=== PATIENT | female | born 1980 | race Caucasian/White ===

== ENCOUNTER → 2017-02-04 | Outpatient (CLI) | payer OTHER ==
--- NOTE | 2017-02-04 14:43 | MM ---
Reason for exam: screening (asymptomatic). History: Taking hormonal contraceptives for 1 month. Physical Findings: Nurse did not find any significant physical abnormalities on exam. MG Screening Mammo w CAD Bilateral CC and MLO view(s) were taken. There are scattered fibroglandular densities. Focal asymmetry in the upper outer left breast posterior third position. These results were verbally communicated with the patient and result sheet given to the patient on 02/04/17. ASSESSMENT: Incomplete: need additional imaging evaluation, BI-RAD 0 RECOMMENDATION: Special view mammogram of the left breast. If lesion persists on supplemental views, image directed ultrasound is recommended. [facility] will attempt to contact patient to return for supplemental views and ultrasound if indicated.
--- NOTE | 2017-02-04 14:46 | MM ---
Reason for exam: additional evaluation requested from abnormal screening. History: Taking hormonal contraceptives for 1 month. Physical Findings: Breast exam preformed at baseline screening. MG Work Up Mamm w CAD LT Spot compression CC, spot compression MLO, and ML view(s) were taken of the left breast. The breast tissue is heterogeneously dense. This may lower the sensitivity of mammography. There is no discrete abnormality including area of concern. These results were verbally communicated with the patient and result sheet given to the patient on 02/04/17. ASSESSMENT: Negative, BI-RAD 1 RECOMMENDATION: Routine screening mammogram of the left breast at age 40.
== END | disposition home or self-care (01) ==
LOC: RADMAMWWP 13:46
PROVIDERS: ATTEND Obstetrics & Gynecology
DX: Z12.31 Encounter for screening mammogram for malignant neoplasm of breast (principal); R92.2 Inconclusive mammogram; R92.8 Other abnormal and inconclusive findings on diagnostic imaging of breast
CPT/HCPCS: G0202; G0206

== ENCOUNTER → 2018-11-05 | Outpatient (CLI) | payer OTHER ==
--- NOTE | 2018-11-05 17:13 | XR ---
EXAMINATION TYPE: XR nasal bone DATE OF EXAM: 11/05/2018 COMPARISON: None HISTORY: Nose injury TECHNIQUE: Nasal bones are examined in 4 projections. FINDINGS: There is a left nares piercing. Additional piercings are at the years. The nasal bone is intact. Maxillary spine is intact. Septum is midline. Paranasal sinuses are clear. Orbits appear unremarkable. IMPRESSION: 1. No acute nasal bone injury.
== END | disposition home or self-care (01) ==
LOC: RADXRYALE 14:31
PROVIDERS: ATTEND Internal Medicine
DX: S09.92XA Unspecified injury of nose, initial encounter (principal)
CPT/HCPCS: 70160

== ENCOUNTER 2019-02-11 09:22 | Emergency (ER) | payer OTHER ==
[2019-02-11 09:27] VITALS: TEMP 97.9
[2019-02-11] MEDS ORDERED: SODIUM CHLORIDE 0.9% 1,000 ML IV STA (09:36)
--- NOTE | 2019-02-11 09:42 | ED ---
Arrhythmia/Palpitations HPI - General Chief Complaint: Arrhythmia/Palpitations Stated Complaint: racing heart Source: patient Mode of arrival: ambulatory Limitations: no limitations - History of Present Illness Initial Comments: 38-year-old female presenting today for chief complaint of sensation of heart racing. Patient states that on Saturday and yesterday she notes her heart was racing she states it comes and goes she states it woke her up on Saturday morning. Patient states she went to her primary care physician's office Dr. Mccann for EKG was obtained she denies any abnormalities. Patient states this morning she felt her heart rate was all over the place. She states there is history of early menopause she is not sure if this is cause dysfunction in her thyroid. Patient states she does have life stressors. And anxiety at times. Pt states he feels like there is a mild tightness of chest with a deep breath but only occasionally and not in the abscess of breathing, denies it being pain. She denies any heavy alcohol ingestion or drug use. Patient denies known history of diabetes hypertension cancer she's never had an myocardial infarction or stroke. Patient denies mother or father having history of coronary artery disease. She states that she believes her grandfather did. She denies premature CAD in family history. Pt denies upper extremity paresthesias jaw pain, back pain, leg swelling, recent surgery, recent travel, hormone use, hemoptysis, history of DVT personally or within her family, pt denies abdominal, nausea, vomiting, diaphoresis. Upon arrival pt appears well there are no signs of acute distress. Pt HR 95 upon arrival, regular to palpation. - Related Data Home Medications Medication Instructions Recorded Confirmed Levonorgestrel-Ethin Estradiol 1 tab PO DAILY 02/11/19 02/11/19 [Levora-28 Tablet] Allergies Allergy/AdvReac Type Severity Reaction Status Date / Time No Known Allergies Allergy Verified 02/11/19 09:38 Review of Systems ROS Statement: Those systems with pertinent positive or pertinent negative responses have been documented in the HPI. ROS Other: All systems not noted in ROS Statement are negative. Past Medical History Past Medical History: No Reported History History of Any Multi-Drug Resistant Organisms: None Reported Past Surgical History: No Surgical Hx Reported Past Psychological History: No Psychological Hx Reported Smoking Status: Former smoker Past Alcohol Use History: Occasional Past Drug Use History: None Reported General Exam - General Exam Comments Initial Comments: General: The patient is awake and alert, in no distress, and does not appear acutely ill. Eye: +3 mm pupils are equal, round and reactive to light, extra-ocular movements are intact. No nystagmus. There is normal conjunctiva bilaterally. No signs of icterus. Ears, nose, mouth and throat: There are moist mucous membranes and no oral lesions. Neck: The neck is supple, there is no tenderness or JVD. Cardiovascular: There is a regular rate and rhythm. Faint mumur. No rub or gallop is appreciated. Respiratory: Lungs are clear to auscultation, respirations are non-labored, breath sounds are equal. No wheezes, stridor, rales, or rhonchi. Gastrointestinal: Soft, non-distended, non-tender abdomen without masses or organomegaly noted. There is no rebound or guarding present.Bowel sounds are unremarkable. Musculoskeletal: Normal ROM, no tenderness. Strength 5/5. Sensation intact. Radial pulses equal bilaterally 2+. Neurological: A&O x 3. CN II-XII intact, There are no obvious motor or sensory deficits. Coordination appears grossly intact. Speech is normal. Skin: Skin is warm and dry and no rashes or lesions are noted. No LE edema,there is no pain to palpation of the calves b/l, (-) Homans. Psychiatric: Cooperative, appropriate mood & affect, normal judgment. 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 There are normal QRS complexes and normal R- wave progression. ST segments have no elevation or depression, and ME segments appear normal. ER interval 160 ms, QRS duration 78 ms, QT/QTC 354/413 ms. QT was interpreted by myself as well as attending provider Dr. Velasquez Medical Decision Making - Medical Decision Making 38-year-old female presenting today for chief complaint of heart palpitations. Patient states she has for the past 2 days felt her heart racing for a few moments and time. Patient states she does have occasional chest tightness with a deep breath she states this is not consistent and denies this currently. Patient denies any chest pain. Patient had EKG outpatient which revealed no acute other maladies. She states her primary care provider is referring her to cardiology. EKG today revealed no acute after maladies no findings consistent with acute coronary syndrome. Troponin negative. Although had low suspicion given patient's complaint. She has no history of diabetes hyperlipidemia or hypertension. Patient denies any premature coronary artery disease within the family. Patient did not have any episodes of palpitations while in the emergency department. Patient did have a very slight murmur audible on examination. There is no lower extremity swelling pleural effusions on chest x- ray or findings consistent with heart failure. At this time I feel patient is stable for discharge with outpatient cardiology evaluation, and primary care follow-up. Patient is agreeable care plan as well as discharge today. She states she feels comfortable and is asymptomatic. I discussed the case with attending provider Dr. Velasquez who is agreeable care plan discharge today - Lab Data Result diagrams: 02/11/19 09:55 02/11/19 09:55 Lab Results 02/11/19 02/11/19 02/11/19 Range/Units 09:55 09:55 09:55 WBC 9.5 (3.8-10.6) k/uL RBC 4.86 (3.80-5.40) m/uL Hgb 13.1 (11.4-16.0) gm/dL Hct 41.1 (34.0-46.0) % MCV 84.4 (80.0-100.0) fL MCH 26.9 (25.0-35.0) pg MCHC 31.9 (31.0-37.0) g/dL RDW 13.4 (11.5-15.5) % Plt Count 325 (150-450) k/uL Neutrophils % 77 % Lymphocytes % 17 % Monocytes % 4 % Eosinophils % 1 % Basophils % 0 % Neutrophils # 7.3 (1.3-7.7) k/uL Lymphocytes # 1.6 (1.0-4.8) k/uL Monocytes # 0.4 (0-1.0) k/uL Eosinophils # 0.1 (0-0.7) k/uL Basophils # 0.0 (0-0.2) k/uL PT 9.7 (9.0-12.0) sec INR 0.9 (<1.2) APTT 22.2 (22.0-30.0) sec D-Dimer 0.44 (<0.60) mg/L FEU Sodium 139 (137-145) mmol/L Potassium 4.5 (3.5-5.1) mmol/L Chloride 107 (98-107) mmol/L Carbon Dioxide 26 (22-30) mmol/L Anion Gap 6 mmol/L BUN 10 (7-17) mg/dL Creatinine 0.65 (0.52-1.04) mg/dL Est GFR (CKD-EPI)AfAm >90 (>60 ml/min/1.73 sqM) Est GFR (CKD-EPI)NonAf >90 (>60 ml/min/1.73 sqM) Glucose 114 H (74-99) mg/dL Calcium 9.1 (8.4-10.2) mg/dL Magnesium 1.9 (1.6-2.3) mg/dL Total Bilirubin 0.5 (0.2-1.3) mg/dL AST 22 (14-36) U/L ALT 19 (9-52) U/L Alkaline Phosphatase 49 (38-126) U/L Troponin I (0.000-0.034) ng/mL Total Protein 6.9 (6.3-8.2) g/dL Albumin 4.1 (3.5-5.0) g/dL TSH 0.718 (0.465-4.680) mIU/L Urine Color Urine Appearance (Clear) Urine pH (5.0-8.0) Ur Specific [place] (1.001-1.035) Urine Protein (Negative) Urine Glucose (UA) (Negative) Urine Ketones (Negative) Urine Blood (Negative) Urine Nitrite (Negative) Urine Bilirubin (Negative) Urine Urobilinogen (<2.0) mg/dL Ur Leukocyte Esterase (Negative) Urine HCG, Qual (Not Detectd) Urine Opiates Screen (NotDetected) Ur Oxycodone Screen (NotDetected) Urine Methadone Screen (NotDetected) Ur Propoxyphene Screen (NotDetected) Ur Barbiturates Screen (NotDetected) U Tricyclic Antidepress (NotDetected) Ur Phencyclidine Scrn (NotDetected) Ur Amphetamines Screen (NotDetected) U Methamphetamines Scrn (NotDetected) U Benzodiazepines Scrn (NotDetected) Urine Cocaine Screen (NotDetected) U Marijuana (THC) Screen (NotDetected) 02/11/19 02/11/19 02/11/19 Range/Units 09:55 09:55 09:55 WBC (3.8-10.6) k/uL RBC (3.80-5.40) m/uL Hgb (11.4-16.0) gm/dL Hct (34.0-46.0) % MCV (80.0-100.0) fL MCH (25.0-35.0) pg MCHC (31.0-37.0) g/dL RDW (11.5-15.5) % Plt Count (150-450) k/uL Neutrophils % % Lymphocytes % % Monocytes % % Eosinophils % % Basophils % % Neutrophils # (1.3-7.7) k/uL Lymphocytes # (1.0-4.8) k/uL Monocytes # (0-1.0) k/uL Eosinophils # (0-0.7) k/uL Basophils # (0-0.2) k/uL PT (9.0-12.0) sec INR (<1.2) APTT (22.0-30.0) sec D-Dimer (<0.60) mg/L FEU Sodium (137-145) mmol/L Potassium (3.5-5.1) mmol/L Chloride (98-107) mmol/L Carbon Dioxide (22-30) mmol/L Anion Gap mmol/L BUN (7-17) mg/dL Creatinine (0.52-1.04) mg/dL Est GFR (CKD-EPI)AfAm (>60 ml/min/1.73 sqM) Est GFR (CKD-EPI)NonAf (>60 ml/min/1.73 sqM) Glucose (74-99) mg/dL Calcium (8.4-10.2) mg/dL Magnesium (1.6-2.3) mg/dL Total Bilirubin (0.2-1.3) mg/dL AST (14-36) U/L ALT (9-52) U/L Alkaline Phosphatase (38-126) U/L Troponin I <0.012 (0.000-0.034) ng/mL Total Protein (6.3-8.2) g/dL Albumin (3.5-5.0) g/dL TSH (0.465-4.680) mIU/L Urine Color Yellow Urine Appearance Clear (Clear) Urine pH 6.0 (5.0-8.0) Ur Specific [place] 1.013 (1.001-1.035) Urine Protein Negative (Negative) Urine Glucose (UA) Negative (Negative) Urine Ketones Negative (Negative) Urine Blood Negative (Negative) Urine Nitrite Negative (Negative) Urine Bilirubin Negative (Negative) Urine Urobilinogen <2.0 (<2.0) mg/dL Ur Leukocyte Esterase Negative (Negative) Urine HCG, Qual Not Detected (Not Detectd) Urine Opiates Screen Not Detected (NotDetected) Ur Oxycodone Screen Not Detected (NotDetected) Urine Methadone Screen Not Detected (NotDetected) Ur Propoxyphene Screen Not Detected (NotDetected) Ur Barbiturates Screen Not Detected (NotDetected) U Tricyclic Antidepress Not Detected (NotDetected) Ur Phencyclidine Scrn Not Detected (NotDetected) Ur Amphetamines Screen Not Detected (NotDetected) U Methamphetamines Scrn Not Detected (NotDetected) U Benzodiazepines Scrn Not Detected (NotDetected) Urine Cocaine Screen Not Detected (NotDetected) U Marijuana (THC) Screen Not Detected (NotDetected) Disposition Clinical Impression: Heart palpitations Disposition: HOME SELF-CARE Condition: Good Instructions (If sedation given, give patient instructions): Heart Palpitations (ED) Additional Instructions: Please use medication as discussed. Please follow-up with family doctor in the next 2 days, and cardiology as scheduled. Please return to emergency room if the symptoms increase or worsen or for any other concerns. Is patient prescribed a controlled substance at d/c from ED?: No Referrals: Ayanna Mccann MD [Primary Care Provider] - 1-2 days Rohan Gallego MD [STAFF PHYSICIAN] - 1-2 days Time of Disposition: 11:23
[2019-02-11 09:57] VITALS: BP 110/67; PULSE 91; RESP 18
[2019-02-11 10:13] LABS: Appearance,Urine Clear (Clear); Bilirubin,Urine Negative (Negative); Blood,Urine Negative (Negative); Color,Urine Yellow; Glucose,Urine (UA) Negative (Negative); Ketones,Urine Negative (Negative); Leukocyte Esterase,Urine Negative (Negative); Nitrite,Urine Negative (Negative); Protein,Urine Negative (Negative); Specific Gravity,Urine 1.013 (1.001-1.035); Urobilinogen,Urine <2.0 mg/dL (<2.0)
--- NOTE | 2019-02-11 10:15 | XR ---
EXAMINATION TYPE: XR chest 2V DATE OF EXAM: 02/11/2019 COMPARISON: NONE HISTORY: Elevated heart rate and palpitations. Dysrhythmia. TECHNIQUE: Frontal and lateral views of the chest are obtained. FINDINGS: Overlying EKG leads are present. There is no focal air space opacity, pleural effusion, or pneumothorax seen. The cardiac silhouette size is within normal limits. The osseous structures are intact. IMPRESSION: No acute cardiopulmonary process.
[2019-02-11 10:18] LABS: Basophils % (A) 0 %; Eosinophils # (A) 0.1 k/uL (0-0.7); Eosinophils % (A) 1 %; HCT 41.1 % (34.0-46.0); HGB 13.1 gm/dL (11.4-16.0); Lymphocytes # (A) 1.6 k/uL (1.0-4.8); Lymphocytes % (A) 17 %; MCH 26.9 pg (25.0-35.0); MCHC 31.9 g/dL (31.0-37.0); MCV 84.4 fL (80.0-100.0); Mean Platelet Volume 6.7; Monocytes # (A) 0.4 k/uL (0-1.0); Monocytes % (A) 4 %; Neutrophils # (A) 7.3 k/uL (1.3-7.7); Neutrophils % (A) 77 %; Platelet Count 325 k/uL (150-450); RBC 4.86 m/uL (3.80-5.40); RDW 13.4 % (11.5-15.5); WBC 9.5 k/uL (3.8-10.6)
[2019-02-11 10:28] LABS: Amphetamine Screen,Urine Not Detected (NotDetected); Barbiturate Screen,Urine Not Detected (NotDetected); Benzodiazepines Screen,Urine Not Detected (NotDetected); Cocaine Screen,Urine Not Detected (NotDetected); Methadone Screen, Urine Not Detected (NotDetected); Opiate Screen,Urine Not Detected (NotDetected); Oxycodone Screen, Urine Not Detected (NotDetected); Phencyclidine Screen,Urine Not Detected (NotDetected); Tricyclic Antidepressant,Urine Not Detected (NotDetected); Urn Cannabinoid Scrn Not Detected (NotDetected)
[2019-02-11 10:34] LABS: ALT 19 U/L (9-52); AST 22 U/L (14-36); Albumin 4.1 g/dL (3.5-5.0); Alkaline Phosphatase 49 U/L (38-126); Anion Gap 6 mmol/L; Blood Urea Nitrogen 10 mg/dL (7-17); Calcium 9.1 mg/dL (8.4-10.2); Carbon Dioxide 26 mmol/L (22-30); Chloride 107 mmol/L (98-107); Glucose 114 mg/dL (74-99); Magnesium 1.9 mg/dL (1.6-2.3); Potassium 4.5 mmol/L (3.5-5.1); Sodium 139 mmol/L (137-145); Total Bilirubin 0.5 mg/dL (0.2-1.3); Total Protein 6.9 g/dL (6.3-8.2)
[2019-02-11 10:51] LABS: D-Dimer 0.44 mg/L FEU (<0.60); INR 0.9 (<1.2); Partial Thromboplastin Time 22.2 sec (22.0-30.0); Prothrombin Time 9.7 sec (9.0-12.0)
== END 2019-02-11 11:55 | disposition home or self-care (01) ==
LOC: EC 09:22
DX: R00.2 Palpitations (principal); R07.89 Other chest pain; R01.1 Cardiac murmur, unspecified; Z87.891 Personal history of nicotine dependence; Z79.3 Long term (current) use of hormonal contraceptives
CPT/HCPCS: 36415; 71046; 80053; 80306; 81003; 81025; 83735; 84443; 84484; 85025; 85379; 85610; 85730; 93005; 96360; 99285

== ENCOUNTER 2019-02-12 22:45 | Observation (INO) | payer OTHER ==
[2019-02-12] MEDS ORDERED: NALOXONE 0.4 MG/ML 1 ML VIAL IV PRN (23:21)
--- NOTE | 2019-02-12 23:21 | ED ---
General Adult HPI - General Chief complaint: Arrhythmia/Palpitations Stated complaint: Palpitations Time Seen by Provider: 02/12/19 22:56 Source: patient Mode of arrival: ambulatory Limitations: no limitations - History of Present Illness Initial comments: Dictation was produced using [employer] dictation software. please excuse any gramma tical, word or spelling errors. Chief Complaint: 38-year-old female presents with palpitations. History of Present Illness: Patient is a 30-year-old female presents with palpitations. Patient states she does not have any medical problems. She was seen here yesterday and was evaluated. She had laboratory evaluation performed. All results are within acceptable limits. She did not have any electrolyte abnormality. No elevation in TSH. Urine toxicology screen was negative. Patient was discharged. When she is at home she experience an episode where her heart rate went up into the 130s 140s. Patient states she was also a little lightheaded. She tried to schedule appointment with cardiology however was not able to get an appointment for another 2-3 weeks. She stated she department seeking further care. Patient is asymptomatic at this time. The ROS documented in this emergency department record has been reviewed and confirmed by me. Those systems with pertinent positive or negative responses have been documented in the HPI. All other systems are other negative and/or noncontributory. PHYSICAL EXAM: General Impression: Alert and oriented x3, not in acute distress HEENT: Normocephalic atraumatic, extra-ocular movements intact, pupils equal and reactive to light bilaterally, mucous membranes moist. Cardiovascular: Heart regular rate and rhythm, S1&S2 audible, no murmurs, rubs or gallops Chest: Lungs clear to auscultation bilaterally, no rhonchi, no wheeze, no rales Abdomen: Bowel sounds present, abdomen soft, non-tender, non-distended, no organomegaly Musculoskeletal: Pulses present and equal in all extremities, no peripheral edema Motor: no focal deficits noted Neurological: CN II-XII grossly intact, no focal motor or sensory deficits noted Skin: Intact with no visualized rashes Psych: Normal affect and mood ED course: 38 female presents with chief complaint palpitations. She is failed outpatient treatment. Signs upon arrival shows heart rate of 11, respiratory signs within acceptable limits. Physical examination is benign. Chart and labs were reviewed from yesterday's visit found to be within acceptable limits. We will plan to place patient in observation unit with cardiology consultation and echocardiogram. Patient is understandable and agreeable to disposition. At this point there is no clear source of patient's symptoms. EKG interpretation: Ventricular rate 91, normal sinus rhythm,. Interval and 60, Q 74, QTC 413. No FL prolongation, no QTC prolongation, no ST or T-wave changes noted. Overall, this EKG is unremarkable - Related Data Home Medications Medication Instructions Recorded Confirmed Levonorgestrel-Ethin Estradiol 1 tab PO DAILY 02/11/19 02/12/19 [Levora-28 Tablet] Aspirin 81 mg PO ONCE PRN 02/12/19 02/12/19 Allergies Allergy/AdvReac Type Severity Reaction Status Date / Time No Known Allergies Allergy Verified 02/12/19 22:56 Review of Systems ROS Statement: Those systems with pertinent positive or pertinent negative responses have been documented in the HPI. ROS Other: All systems not noted in ROS Statement are negative. Past Medical History Past Medical History: No Reported History History of Any Multi-Drug Resistant Organisms: None Reported Past Surgical History: No Surgical Hx Reported Past Psychological History: No Psychological Hx Reported Smoking Status: Former smoker Past Alcohol Use History: Occasional Past Drug Use History: None Reported General Exam Limitations: no limitations Course Vital Signs 02/12/19 22:47 Temperature 98.2 F Pulse Rate 101 H Respiratory 20 Rate Blood Pressure 152/92 O2 Sat by Pulse 98 Oximetry Disposition Clinical Impression: Palpitations Disposition: ADMITTED IP TO THIS HOSP Condition: Fair Referrals: Ayanna Mccann MD [Primary Care Provider] - 1-2 days Decision Time: 23:21
[2019-02-12] MEDS ORDERED: SODIUM CHLORIDE 0.9% 1,000 ML IV SCH (23:30)
[2019-02-12 23:41] LABS: Basophils # (A) 0.1 k/uL (0-0.2); Basophils % (A) 0 %; Eosinophils # (A) 0.2 k/uL (0-0.7); Eosinophils % (A) 2 %; HCT 39.8 % (34.0-46.0); HGB 13.1 gm/dL (11.4-16.0); Lymphocytes # (A) 2.9 k/uL (1.0-4.8); Lymphocytes % (A) 23 %; MCH 27.3 pg (25.0-35.0); MCV 82.8 fL (80.0-100.0); Mean Platelet Volume 6.9; Monocytes # (A) 0.7 k/uL (0-1.0); Monocytes % (A) 5 %; Neutrophils # (A) 8.7 k/uL (1.3-7.7); Neutrophils % (A) 69 %; Platelet Count 317 k/uL (150-450); RBC 4.81 m/uL (3.80-5.40); RDW 13.8 % (11.5-15.5); WBC 12.7 k/uL (3.8-10.6)
[2019-02-12 23:44] LABS: Anion Gap 11 mmol/L; Blood Urea Nitrogen 13 mg/dL (7-17); Calcium 9.5 mg/dL (8.4-10.2); Carbon Dioxide 23 mmol/L (22-30); Chloride 103 mmol/L (98-107); Glucose 97 mg/dL (74-99); Magnesium 1.9 mg/dL (1.6-2.3); Potassium 3.9 mmol/L (3.5-5.1); Sodium 137 mmol/L (137-145)
[2019-02-13 01:01] LABS: Appearance,Urine Clear (Clear); Bilirubin,Urine Negative (Negative); Blood,Urine Negative (Negative); Color,Urine Light Yellow; Glucose,Urine (UA) Negative (Negative); Ketones,Urine 1+ (Negative); Leukocyte Esterase,Urine Negative (Negative); Nitrite,Urine Negative (Negative); Protein,Urine Negative (Negative); Specific Gravity,Urine 1.008 (1.001-1.035); Urobilinogen,Urine <2.0 mg/dL (<2.0)
[2019-02-13] MEDS ORDERED: METOPROLOL SUCCINATE (ER) 25 MG TAB.ER.24H PO SCH (11:15)
[2019-02-13] MEDS ORDERED: SODIUM CHLORIDE 0.9% 1,000 ML IV SCH (12:15)
--- NOTE | 2019-02-13 12:16 | P.CRDCN ---
History of Present Illness History of present illness: This is a pleasant 38-year-old female with no significant past medical history. She denies history of hypertension, dyslipidemia, diabetes mellitus or coronary artery disease. She presented to the hospital with symptoms of palpitations. She states she first felt this on Saturday when she woke up. She was laying in bed when she felt her heart racing extremely fast. She was very upset that at the time and around her heart rate was 138. This lasted for approximately 10-15 minutes and ultimately subsided on its own. She saw her primary care physician and was recommended to follow-up with a headmaster/mistress. She called the office made appointment for 2 weeks. However again yesterday she felt symptoms of palpitations and again her that there are heart rate was approximately 130. She decided to present to the emergency department. At that time her electrolytes were normal, EKG and telemetry were unremarkable and thyroid was normal. She was sent home. This happen again last evening and this time was associated with some mild lightheadedness and some pleuritic chest discomfort. She states she felt like it hurt worse when she took in a deep breath at times. D-dimer obtained on first admission February 11 was unremarkable. EKG reveals sinus mechanism with no acute ST or T wave abnormalities noted. Telemetry tracings have been unremarkable for an acute arrhythmia. Laboratory data reviewed, WBC 12.7, hemoglobin 13.1, platelets 317, d-dimer 0.45, sodium 137, potassium 3.9, creatinine 0.85, magnesium 1.9. TSH obtained on the was 0.7. She takes no daily cardiac medications. At the time of my exam: CONSTITUTIONAL: Denies fever. Denies chills. EYES: Denies blurred vision. Denies vision changes. Denies eye pain. EARS, NOSE, MOUTH & THROAT: Denies headache. Denies sore throat. Denies ear pain. CARDIOVASCULAR: Complains of pleuritic chest pain. Denies shortness of breath. Denies orthopnea. Denies PND. Denies palpitations. RESPIRATORY: Denies cough. GASTROINTESTINAL: Denies abdominal pain. Complains of diarrhea. Denies constipation. Denies nausea. Denies vomiting. MUSCULOSKELETAL: Denies myalgias. INTEGUMENTARY: Denies pruitis. Denies rash. NEUROLOGIC: Denies numbness. Denies tingling. Denies weakness. PSYCHIATRIC: Denies anxiety. Denies depression. ENDOCRINE: Denies fatigue. Denies weight change. Denies polydipsia. Denies polyurina. GENITOURINARY: Denies burning, hematuria or urgency with micturation. HEMATOLOGIC: Denies history of anemia. Denies bleeding. Blood pressure 147/79 heart rate 90 afebrile maintaining oxygen saturation on room air GENERAL: This is a 38-year-old female in no apparent distress at the time of my examination. HEENT: Head is atraumatic, normocephalic. Pupils are equal, round. Sclerae anicteric. Conjunctivae are clear. Mucous membranes of the mouth are moist. Neck is supple. There is no jugular venous distention. No carotid bruit is heard. LUNGS: Clear to auscultation no wheezes, rales or rhonchi. No chest wall tenderness is noted on palpation or with deep breathing. HEART: Regular rate and rhythm without murmurs, rubs or gallops. S1 and S2 heard. ABDOMEN: Soft, nontender. Bowel sounds are heard. No organomegaly noted. EXTREMITIES: No evidence of peripheral edema and no calf tenderness noted. VASCULAR: Radial and dorsalis pedis pulses palpated, no evidence of clubbing. NEUROLOGIC: Patient is awake, alert and oriented x3. ASSESSMENT Palpitations Pleuritic chest pain Leukocytosis PLAN Palpitations have resolved prior to admission. She has had no further symptoms of palpitations and telemetry tracings have been unremarkable. Echocardiogram has been obtained and reviewed. Perform stress echocardiogram to assess for an acute arrhythmia. Apply 30 day event monitor for outpatient monitoring of possible arrhythmia. Check for orthostatic changes. Recommend IV fluid hydration 0.9% normal saline at 100 mL/h. Follow up with Dr. Sterling upon discharge. Thank you kindly for this consultation. Nurse Practitioner note has been reviewed, I agree with a documented findings and plan of care. Patient was seen and examined. Past Medical History Past Medical History: No Reported History History of Any Multi-Drug Resistant Organisms: None Reported Past Surgical History: No Surgical Hx Reported Past Anesthesia/Blood Transfusion Reactions: No Reported Reaction Past Psychological History: No Psychological Hx Reported Smoking Status: Former smoker Past Alcohol Use History: Occasional Past Drug Use History: None Reported - Past Family History Father Family Medical History: Hypertension Sister(s) Additional Family Medical History / Comment(s): borderline DM Medications and Allergies Home Medications Medication Instructions Recorded Confirmed Type Levonorgestrel-Ethin Estradiol 1 tab PO DAILY 02/11/19 02/12/19 History [Levora-28 Tablet] Aspirin 81 mg PO ONCE PRN 02/12/19 02/12/19 History Allergies Allergy/AdvReac Type Severity Reaction Status Date / Time No Known Allergies Allergy Verified 02/12/19 22:56 Physical Exam Vitals: Vital Signs Temp Pulse Pulse Pulse Resp BP BP 02/13/19 08:00 18 02/13/19 07:25 97.4 F L 90 18 147/79 02/13/19 04:00 97.9 F 102 H 18 02/13/19 03:33 18 02/13/19 00:00 98.2 F 94 77 18 146/95 02/12/19 23:25 90 02/12/19 22:47 98.2 F 101 H 20 152/92 BP Pulse Ox 02/13/19 08:00 02/13/19 07:25 97 02/13/19 04:00 134/82 98 02/13/19 03:33 02/13/19 00:00 117/76 96 02/12/19 23:25 02/12/19 22:47 98 Intake and Output 02/12/19 02/13/19 02/13/19 22:59 06:59 14:59 Other: Voiding Method Toilet Toilet # Voids 1 Weight 87.543 kg Results 02/12/19 23:15 02/12/19 23:15 CBC 02/12/19 Range/Units 23:15 WBC 12.7 H (3.8-10.6) k/uL RBC 4.81 (3.80-5.40) m/uL Hgb 13.1 (11.4-16.0) gm/dL Hct 39.8 (34.0-46.0) % Plt Count 317 (150-450) k/uL Comprehensive Metabolic Panel 02/12/19 Range/Units 23:15 Sodium 137 (137-145) mmol/L Potassium 3.9 (3.5-5.1) mmol/L Chloride 103 (98-107) mmol/L Carbon Dioxide 23 (22-30) mmol/L BUN 13 (7-17) mg/dL Creatinine 0.85 (0.52-1.04) mg/dL Glucose 97 (74-99) mg/dL Calcium 9.5 (8.4-10.2) mg/dL Current Medications Generic Name Dose Route Start Last Admin Trade Name Freq PRN Reason Stop Dose Admin Sodium Chloride 1,000 mls @ 100 mls/hr 02/13/19 12:15 Saline 0.9% IV .Q10H CATALINO Metoprolol Succinate 25 mg 02/13/19 11:15 02/13/19 11:59 Toprol Xl PO 25 mg DAILY CATALINO Administration Naloxone HCl 0.2 mg 02/12/19 23:21 Narcan IV Q2M PRN Opioid Reversal Intake and Output 02/12/19 02/13/19 02/13/19 22:59 06:59 14:59 Other: Voiding Method Toilet Toilet # Voids 1 Weight 87.543 kg 02/12/19 23:15 02/12/19 23:15
--- NOTE | 2019-02-13 12:48 | ECHOS ---
STRESS ECHOCARDIOGRAM DATE OF SERVICE: 02/13/2019 INDICATIONS: Chest pain. MEDICATIONS: Estradiol, aspirin. BASELINE HEART RATE: 96 BASELINE BLOOD PRESSURE: 147/70 MAXIMUM HEART RATE: 165 MAXIMUM BLOOD PRESSURE: 163/79 85% MPHR: 155 100% MPHR: 182 METS: 9.7 MAXIMUM STAGE REACHED: III TOTAL EXERCISE TIME: 8 minutes CLINICAL INFORMATION: Patient was exercised for a total period of 8 minutes, peak heart rate of 165 was achieved. Maximum blood pressure 163/79 mmHg was noted. The resting EKG shows normal sinus rhythm with normal UT interval and QRS duration and normal ST-T waves. No ST- segment depression suggestive of ischemia was noted. No dysrhythmias were noted. The baseline echocardiographic images reveals normal left ventricular chamber size with normal left ventricular systolic function. In the immediate postexercise period, normal increase in the wall thickness and contractility is noted. FINAL IMPRESSION: This stress echocardiographic study is negative for stress-induced ischemia. EKG portion of the stress test is not suggestive of ischemia. Patient's exercise tolerance is average. MMODL / IJN: [id number] /
[2019-02-13 13:00] LABS: T4, Free (Free Thyroxine) 1.25 ng/dL (0.78-2.19)
--- NOTE | 2019-02-13 14:13 | P.PN ---
Progress Note - Text Continue IV fluid hydration until 1700 then she is stable for discharge home. Follow up appointment with Dr. Sterling has been made in the office.
--- NOTE | 2019-02-13 15:42 | ECHOF ---
Referral Reason:SYNCOPE MEASUREMENTS -------- HEIGHT: 165.1 cm WEIGHT: 87.5 kg BP: 134/82 RVIDd: 2.8 cm (< 3.3) IVSd: 1.2 cm (0.6 - 1.1) LVIDd: 3.4 cm (3.9 - 5.3) LVPWd: 1.2 cm (0.6 - 1.1) IVSs: 1.4 cm LVIDs: 2.3 cm LVPWs: 1.7 cm LA Diam: 2.9 cm (2.7 - 3.8) LAESV Index (A-L): 26.56 ml/m Ao Diam: 2.7 cm (2.0 - 3.7) AV Cusp: 2.0 cm (1.5 - 2.6) MV EXCURSION: 18.612 mm (> 18.000) MV EF SLOPE: 89 mm/s (70 - 150) EPSS: 0.3 cm MV E Rian: 1.03 m/s MV DecT: 210 ms MV A Rian: 0.98 m/s MV E/A Ratio: 1.05 RAP: 5.00 mmHg RVSP: 15.73 mmHg FINDINGS -------- Sinus rhythm. This was a technically good study. The left ventricular size is normal. There is borderline concentric left ventricular hypertrophy. Overall left ventricular systolic function is normal with, an EF between 60 - 65 %. The right ventricle is normal in size. Normal LA size by volume 22+/-6 ml/m2. The right atrium is normal in size. Aneurysmal Interatrial septum. The aortic valve is trileaflet and appears structurally normal. The mitral valve is normal. The tricuspid valve appears structurally normal. Trace tricuspid regurgitation present. Right fracisco tricular systolic pressure is normal at < 35 mmHg. Trace/mild (physiologic) pulmonic regurgitation. The aortic root size is normal. Normal inferior vena cava with normal inspiratory collapse consistent with estimated right atrial pre ssure of 5 mmHg. There is no pericardial effusion. CONCLUSIONS -------- 1. Sinus rhythm. 2. This was a technically good study. 3. The left ventricular size is normal. 4. There is borderline concentric left ventricular hypertrophy. 5. Overall left ventricular systolic function is normal with, an EF between 60 - 65 %. 6. The right ventricle is normal in size. 7. Normal LA size by volume 22+/-6 ml/m2. 8. The right atrium is normal in size. 9. Aneurysmal Interatrial septum. 10. The aortic valve is trileaflet and appears structurally normal. 11. The mitral valve is normal. 12. The tricuspid valve appears structurally normal. 13. Trace tricuspid regurgitation present. 14. Right ventricular systolic pressure is normal at < 35 mmHg. 15. Trace/mild (physiologic) pulmonic regurgitation. 16. The aortic root size is normal. 17. Normal inferior vena cava with normal inspiratory collapse consistent with estimated right atrial pressure of 5 mmHg. 18. There is no pericardial effusion. EXTRACTIONS TECHNICIAN: Vibha Bishop RDCS
--- NOTE | 2019-02-13 15:57 | P.HPIM ---
History of Present Illness Patient is a very pleasant 32-year-old female came in with complains of palpitations. Patient heart rate was very high at 138 when she checked it at home. Lasted for approximately 10-15 minutes. PCP advised to follow with a lead material handler and she can you to have symptoms of palpitations because of which she came to ER in the ER EKG showed heart rate of 21 but heart rate is in the sinus tachycardia in low 100s. Patient was comparing of some pleuritic chest pain because of which are CAT scan of the chest was opted ruled out pulmonary embolism no there is no pneumonia patient 2 days, also complaining of tingling and numbness under the eyebrow area not diffuse appears to be localized. This is not consistent with any area of the pain. Patient denied any fever chills patient has some flushing. We will leukocytosis without any acute evidence of infection or palpitations associated mild lightheadedness patient underwent a dobutamine stress test which was negative although he appears to have some sinus tachycardia with that. Patient is being discharged on metoprolol along with an event monitor. Patient denied any syncopal episode. TSH and T4 within normal limits Review of Systems REVIEW OF SYSTEMS: CONSTITUTIONAL: No fever, no malaise, no fatigue. HEENT: No recent visual problems or hearing problems. Denied any sore throat. CARDIOVASCULAR: No chest pain, orthopnea, PND, no syncope. PULMONARY: No shortness of breath, no cough, no hemoptysis. GASTROINTESTINAL: No diarrhea, no nausea, no vomiting, no abdominal pain. NEUROLOGICAL: No headaches, no weakness, no numbness. HEMATOLOGICAL: Denies any bleeding or petechiae. GENITOURINARY: Denies any burning micturition, frequency, or urgency. MUSCULOSKELETAL/RHEUMATOLOGICAL: Denies any joint pain, swelling, or any muscle pain. ENDOCRINE: Denies any polyuria or polydipsia. The rest of the 14-point review of systems is negative. Past Medical History Past Medical History: No Reported History History of Any Multi-Drug Resistant Organisms: None Reported Past Surgical History: No Surgical Hx Reported Past Anesthesia/Blood Transfusion Reactions: No Reported Reaction Past Psychological History: No Psychological Hx Reported Smoking Status: Former smoker Past Alcohol Use History: Occasional Past Drug Use History: None Reported - Past Family History Father Family Medical History: Hypertension Sister(s) Additional Family Medical History / Comment(s): borderline DM Medications and Allergies Home Medications Medication Instructions Recorded Confirmed Type Levonorgestrel-Ethin Estradiol 1 tab PO DAILY 02/11/19 02/12/19 History [Levora-28 Tablet] Aspirin 81 mg PO ONCE PRN 02/12/19 02/12/19 History Metoprolol Succinate (ER) [Toprol 25 mg PO DAILY #90 tab.er.24h 02/13/19 Rx XL] Allergies Allergy/AdvReac Type Severity Reaction Status Date / Time No Known Allergies Allergy Verified 02/12/19 22:56 Physical Exam Vitals: Vital Signs Temp Pulse Pulse Pulse Pulse Pulse Pulse 02/13/19 13:59 91 101 H 79 02/13/19 12:00 98.1 F 90 104 H 02/13/19 08:00 02/13/19 07:25 97.4 F L 90 02/13/19 04:00 97.9 F 102 H 02/13/19 03:33 02/13/19 00:00 98.2 F 94 77 02/12/19 23:25 90 02/12/19 22:47 98.2 F 101 H Resp BP BP BP BP BP BP 02/13/19 13:59 142/91 129/87 119/79 02/13/19 12:00 18 116/75 02/13/19 08:00 18 02/13/19 07:25 18 147/79 02/13/19 04:00 18 134/82 02/13/19 03:33 18 02/13/19 00:00 18 146/95 117/76 02/12/19 23:25 02/12/19 22:47 20 152/92 Pulse Ox 02/13/19 13:59 02/13/19 12:00 94 L 02/13/19 08:00 02/13/19 07:25 97 02/13/19 04:00 98 02/13/19 03:33 02/13/19 00:00 96 02/12/19 23:25 02/12/19 22:47 98 Intake and Output 02/13/19 02/13/19 02/13/19 06:59 14:59 22:59 Intake Total 480 Balance 480 Intake: Oral 480 Other: Voiding Method Toilet Toilet # Voids 1 2 PHYSICAL EXAMINATION: GENERAL: The patient is alert and oriented x3, not in any acute distress. Well developed, well nourished. HEENT: Pupils are round and equally reacting to light. EOMI. No scleral icterus. No conjunctival pallor. Normocephalic, atraumatic. No pharyngeal erythema. No thyromegaly. CARDIOVASCULAR: S1 and S2 present. No murmurs, rubs, or gallops. Mild tachycardia PULMONARY: Chest is clear to auscultation, no wheezing or crackles. ABDOMEN: Soft, nontender, nondistended, normoactive bowel sounds. No palpable organomegaly. MUSCULOSKELETAL: No joint swelling or deformity. EXTREMITIES: No cyanosis, clubbing, or pedal edema. NEUROLOGICAL: Gross neurological examination did not reveal any focal deficits. SKIN: No rashes. Results CBC & Chem 7: 02/12/19 23:15 02/12/19 23:15 Labs: Abnormal Lab Results - Last 24 Hours (Table) 02/12/19 02/13/19 Range/Units 23:15 00:45 WBC 12.7 H (3.8-10.6) k/uL Neutrophils # 8.7 H (1.3-7.7) k/uL Urine Ketones 1+ H (Negative) Thrombosis Risk Factor Assmnt - Choose All That Apply Any of the Below Risk Factors Present?: Yes Each Factor Represents 1 point: Obesity (BMI >25) Other Risk Factors: No Thrombosis Risk Factor Assessment Total Risk Factor Score: 1 Thrombosis Risk Factor Assessment Level: Low Risk Assessment and Plan Plan: Palpitations: Patient has sinus tachycardia here etiology of the sinus tachycardia is not clear patient is being discharged on beta lynn and the patient is being discharged on event monitor to see if she has any episodes of SVT. -Pleuritic chest pain rule out pulmonary embolism leukocytosis: Reactive -possible anxiety disorder Patient will be discharged on beta lynn and an event monitor follow-up with Dr. Mccann PCP sometime next week
--- NOTE | 2019-02-13 16:00 | P.DS ---
Providers Date of admission: 02/12/19 23:21 Attending physician: Margi Macedo Consults: 02/12/19 23:24 Consult Physician Routine Consulting Provider: Jenny Finn Consult Reason/Comments: palpitations Do you want consulting provider notified?: Yes Primary care physician: Ayanna Mccann Hospital Course: Please refer to my HPI for further details Patient Condition at Discharge: Fair Plan - Discharge Summary Discharge Rx Participant: Yes New Discharge Prescriptions: New Metoprolol Succinate (ER) [Toprol XL] 25 mg PO DAILY #90 tab.er.24h No Action Levonorgestrel-Ethin Estradiol [Levora-28 Tablet] 1 tab PO DAILY Aspirin 81 mg PO ONCE PRN PRN Reason: Chest Pain Discharge Medication List Levonorgestrel-Ethin Estradiol [Levora-28 Tablet] 1 tab PO DAILY 02/11/19 [History] Aspirin 81 mg PO ONCE PRN 02/12/19 [History] Metoprolol Succinate (ER) [Toprol XL] 25 mg PO DAILY #90 tab.er.24h 02/13/19 [Rx] Follow up Appointment(s)/Referral(s): Ayanna Mccann MD [Primary Care Provider] - 3 Days Kb Sterling MD [STAFF PHYSICIAN] - 03/26/19 2:30 pm Discharge Disposition: HOME SELF-CARE
[2019-02-13 16:11] VITALS: BP 137/85; PULSE 94; RESP 16; TEMP 98.2
== END 2019-02-13 17:15 | disposition home or self-care (01) ==
LOC: EC 22:45 → 1SOBS 23:21
PROVIDERS: ADMIT Hospitalist; ATTEND Hospitalist
DX: R00.0 Tachycardia, unspecified (principal); R07.81 Pleurodynia; D72.829 Elevated white blood cell count, unspecified; R20.2 Paresthesia of skin; R20.0 Anesthesia of skin; E66.9 Obesity, unspecified; Z68.32 Body mass index [BMI] 32.0-32.9, adult; Z87.891 Personal history of nicotine dependence; Z79.3 Long term (current) use of hormonal contraceptives; Z82.49 Family history of ischemic heart disease and other diseases of the circulatory system
CPT/HCPCS: 99285; 36415; 93005; 93306; 93270; 93351; 85379; 84439; 84481; 80048; 83735; 85025; 81003; G0378 ×2

== ENCOUNTER → 2021-06-26 | Outpatient (CLI) | payer OTHER ==
--- NOTE | 2021-06-27 11:46 | MM ---
Reason for exam: screening (asymptomatic). Last mammogram was performed 4 years and 5 months ago. History: Took hormonal contraceptives for 14 years. Physical Findings: A clinical breast exam by your physician is recommended on an annual basis and results should be correlated with mammographic findings. MG Screening Mammo w CAD Bilateral CC and MLO view(s) were taken. Prior study comparison: February 04, 2017, left breast MG work up mamm w CAD LT. February 04, 2017, bilateral MG screening mammo w CAD. The breast tissue is heterogeneously dense. This may lower the sensitivity of mammography. Focal asymmetry upper outer left breast zone C. This finding is changed when compared with previous exams. ASSESSMENT: Incomplete: need additional imaging evaluation, BI-RAD 0 RECOMMENDATION: Special view mammogram of the left breast. If lesion persists on supplemental views, image directed ultrasound is recommended. [facility] will attempt to contact patient to return for supplemental views and ultrasound if indicated.
== END | disposition home or self-care (01) ==
LOC: RADMAMWWP 09:46
PROVIDERS: ATTEND Obstetrics & Gynecology
DX: Z12.31 Encounter for screening mammogram for malignant neoplasm of breast (principal)
CPT/HCPCS: 77067

== ENCOUNTER → 2021-07-03 | Outpatient (CLI) | payer OTHER ==
--- NOTE | 2021-07-03 13:40 | MM ---
Reason for exam: additional evaluation requested from abnormal screening. Last mammogram was performed less than 1 month ago. History: Took hormonal contraceptives for 14 years. Physical Findings: Nurse did not find any significant physical abnormalities on exam. MG Work Up Mamm w CAD LT Spot compression CC, spot compression MLO, and LM view(s) were taken of the left breast. Prior study comparison: June 26, 2021, bilateral MG screening mammo w CAD. February 04, 2017, left breast MG work up mamm w CAD LT. There are scattered fibroglandular densities. The upper outer quadrant focal asymmetry becomes less defined on spot MLO but incompletely disperses. It resolves on spot CC. Ultrasound recommended. These results were verbally communicated with the patient and result sheet given to the patient on 07/03/21. ASSESSMENT: Incomplete: need additional imaging evaluation, BI-RAD 0 RECOMMENDATION: Ultrasound of the left breast. (upper outer quadrant)
--- NOTE | 2021-07-03 13:41 | USB ---
Reason for exam: additional evaluation requested from abnormal screening. History: Took hormonal contraceptives for 14 years. US Breast Workup Limited LT Left limited breast ultrasound including focal area of concern, retroareolar and axilla demonstrates no cystic or solid lesion seen. Scanned 12-3 o'clock. These results were verbally communicated with the patient and result sheet given to the patient on 07/03/21. ASSESSMENT: Probably benign, BI-RAD 3 RECOMMENDATION: Follow-up diagnostic mammogram of the left breast in 6 months.
== END | disposition home or self-care (01) ==
LOC: RADMAMWWP 09:04
PROVIDERS: ATTEND Obstetrics & Gynecology
DX: N64.89 Other specified disorders of breast (principal)
CPT/HCPCS: 77065

== ENCOUNTER → 2022-02-05 | Outpatient (CLI) | payer OTHER ==
--- NOTE | 2022-02-05 09:11 | MM ---
Reason for exam: follow-up at short interval from prior study. Last mammogram was performed 7 months ago. History: Took hormonal contraceptives for 14 years. Physical Findings: A clinical breast exam by your physician is recommended on an annual basis and results should be correlated with mammographic findings. MG Diagnostic Mammo LT w CAD CC and MLO view(s) were taken of the left breast. Prior study comparison: July 03, 2021, left breast MG work up mamm w CAD LT. June 26, 2021, bilateral MG screening mammo w CAD. The breast tissue is heterogeneously dense. This may lower the sensitivity of mammography. There is no discrete abnormality. Results were given to the patient verbally at the time of the exam. ASSESSMENT: Negative, BI-RAD 1 RECOMMENDATION: Return to routine screening mammogram schedule for both breasts. Back on schedule.
--- NOTE | 2022-02-05 09:12 | USB ---
Reason for exam: follow-up at short interval from prior study. History: Took hormonal contraceptives for 14 years. Physical Findings: A clinical breast exam by your physician is recommended on an annual basis and results should be correlated with mammographic findings. US Breast LT Left complete breast ultrasound includes all four quadrants, the retroareolar region and axilla. Finding demonstrates no cystic or solid lesion seen. Results were given to the patient verbally at the time of the exam. ASSESSMENT: Negative, BI-RAD 1 RECOMMENDATION: Return to routine screening mammogram schedule for both breasts. Back on schedule.
== END | disposition home or self-care (01) ==
LOC: RADMAMWWP 07:19
PROVIDERS: ATTEND Family Medicine
DX: R92.8 Other abnormal and inconclusive findings on diagnostic imaging of breast (principal)
CPT/HCPCS: 77065

== ENCOUNTER → 2022-08-20 | Outpatient (CLI) | payer OTHER ==
--- NOTE | 2022-08-20 14:40 | US ---
EXAMINATION TYPE: US transvaginal DATE OF EXAM: 08/20/2022 COMPARISON: US CLINICAL HISTORY: N83.209 ovarian cyst. Ovarian cyst. . TECHNIQUE: Transvaginal (TV). Date of LMP: 08/02/22 EXAM MEASUREMENTS: Uterus: 10.7 x 4.9 x 4.0 cm Endometrial Stripe: 1.12 cm Right Ovary: 5.1 x 3.7 x 3.1 cm Left Ovary: 4.0 x 2.7 x 2.5 cm 1. Uterus: Anteverted Appears minimally enlarged. Anechoic area seen in cervix, largest: 1.4 x 1.5 x 0.9 cm. Anechoic, fluid-appearing area in cervix: 1.7 x 1.0 x 0.4 cm. 2. Endometrium: Measures 1.12 cm 3. Right Ovary: Anechoic area seen: 3.2 x 3.3 x 2.7 cm. Hypoechoic area seen: 1.7 x 1.5 x 1.1 cm. 4. Left Ovary: Anechoic area seen: 1.7 x 1.4 x 1.6 cm. 5. Bilateral Adnexa: Prominent vessels seen in left adnexa. Complex, septated area seen in left adne xa separate from ovary: 4.2 x 2.5 x 2.2 cm. 6. Posterior cul-de-sac: Appears wnl Complex area seen midline pelvis near the right ovary: 4.1 x 3.0 x 2.2 cm. IMPRESSION: 1. Nonspecific Complex cystic lesions. Follow-up in 6 weeks is advised
--- NOTE | 2022-08-21 19:58 | MM ---
Reason for Exam: Screening (asymptomatic). Last mammogram was performed 1 year(s) and 2 month(s) ago. Patient History: Menarche at age 14. First Full-Term at age 18. Patient used Hormonal Contraceptives for 14 years. Last menstrual period: 08/02/2022 Risk Values: Shu 5 year model risk: 0.4%. NCI Lifetime model risk: 6.6%. Prior Study Comparison: 06/26/2021 Bilateral Screening Mammogram, [facility]. 07/03/2021 Left Diagnostic Mammogram, [facility]. 02/05/2022 Left Diagnostic Mammogram, [facility]. Tissue Density: The breast tissue is heterogeneously dense. This may lower the sensitivity of mammography. Findings: Analyzed By CAD. There is no suspicious group of microcalcifications or new suspicious mass in either breast. Overall Assessment: Negative, BI-RAD 1 Management: Screening Mammogram of both breasts in 1 year. 1. Patient should continue monthly self breast exams. 2. A clinical breast exam by your physician is recommended on an annual basis. 3. This exam should not preclude additional follow-up of suspicious palpable abnormalities. Electronically signed and approved by: Isai Liang M.D. Radiologist
== END | disposition home or self-care (01) ==
LOC: RADUSWWP 12:52
PROVIDERS: ATTEND Family Medicine
DX: Z12.31 Encounter for screening mammogram for malignant neoplasm of breast (principal); N83.209 Unspecified ovarian cyst, unspecified side
CPT/HCPCS: 76830; 77067

== ENCOUNTER → 2022-09-05 | Outpatient (CLI) | payer OTHER ==
--- NOTE | 2022-09-05 08:57 | CT ---
EXAMINATION TYPE: CT abdomen pelvis wo con DATE OF EXAM: 09/05/2022 HISTORY: Ovarian cyst, recent abnormal ultrasound. CT DLP: 1000 mGycm. Automated Exposure Control for Dose Reduction was Utilized. TECHNIQUE: CT scan of the abdomen and pelvis is performed without oral or IV contrast. COMPARISON: Reason transvaginal pelvic ultrasound August 20, 2022 FINDINGS: Within the limitations of a non-contrast study, the following observations are made. LUNG BASES: No significant abnormality is appreciated. LIVER/GB: No significant abnormality is appreciated. PANCREAS: No significant abnormality is seen. SPLEEN: No significant abnormality is seen. ADRENALS: No significant abnormality is seen. KIDNEYS: No renal stones or hydronephrosis is seen bilaterally. BOWEL: No significant abnormality is seen. GENITAL ORGANS: Anteverted uterus. Oval circumscribed low dense lesions in both adnexa suspected ovar ies, for reference 2.8 x 2.7 cm lesion posterior left ovary axial image 115 and slightly more ill-def ined 3.6 cm low dense lesion right ovary axial image 113. Gas in the deep vaginal canal axial image 1 30. Correlate for recent examination and/or instrumentation. Occasional scattered tiny pelvic phlebol ith. No free fluid. LYMPH NODES: No greater than 1cm abdominal or pelvic lymph nodes are appreciated. OSSEOUS STRUCTURES: Moderate spurring and disc space narrowing left L4-L5 and right L5-S1 levels. Mod erate axial joint space loss in both hips. OTHER: Small to moderate-size umbilical hernia containing fat and tiny mesenteric vessels. IMPRESSION: Adnexal and/or ovarian lesions better described on ultrasound or MRI versus CT. No obviou s pathology on CT noted.
== END | disposition home or self-care (01) ==
LOC: RADCTMAIN 08:26
PROVIDERS: ATTEND Family Medicine
DX: N83.291 Other ovarian cyst, right side (principal); N83.209 Unspecified ovarian cyst, unspecified side
CPT/HCPCS: 74176

== ENCOUNTER → 2022-10-22 | Outpatient (CLI) | payer OTHER ==
--- NOTE | 2022-10-22 11:05 | US ---
EXAMINATION TYPE: US transvaginal DATE OF EXAM: 10/22/2022 COMPARISON: Prior transvaginal ultrasound August 20, 2022. Prior CT abdomen and pelvis September 05, 2022 CLINICAL HISTORY: N83.209 UNSPECIFIED OVARIAN CYST, UNSPECIFIED SIDE. TECHNIQUE: Transvaginal (TV). Transabdominal sonographic images of the pelvis were acquired. Trans vaginal sonographic images were medically necessary to better assess the following anatomy: Date of LMP: 09-28-23 EXAM MEASUREMENTS: Uterus: 8.8 x 4.0 x 4.9 cm Endometrial Stripe: 0.7 cm Right Ovary: 6.1 x 3.8 x 3.9 cm Left Ovary: 3.1 x 2.1 x 2.0 cm 1. Uterus: Anteverted 2. Endometrium: 0.9cm of fluid within 3. Right Ovary: enlarged ovary with multiple cysts, largest two measuring 3.3 x 3.3 x 1.7 cm and 4.3 x 2.2 x 2.5cm 4. Left Ovary: cyst measuring 2.5 x 1.9 x 1.8cm 5. Bilateral Adnexa: wnl 6. Posterior cul-de-sac: wnl Nabothian cysts are redemonstrated in the cervix. Small amount of fluid in endometrial canal is noted . Endometrial stripe within normal limits for secretory phase of menstrual cycle. No free fluid in pe lvic cul-de-sac. Enlarged right ovary redemonstrated with several thin-walled cysts or more likely larger multi locula r cyst measuring near 4.3 cm long axis without solid component with irregular inner curiel and/or sept ations. IMPRESSION: As above. O-Rads 4 lesion. Intermediate risk remains present right ovary. Advise gynecolo gy oncology referral to further evaluate. Consider pelvic MRI to further evaluate.
== END | disposition home or self-care (01) ==
LOC: RADUSWWP 09:33
PROVIDERS: ATTEND Family Medicine
DX: N83.8 Other noninflammatory disorders of ovary, fallopian tube and broad ligament (principal); N83.202 Unspecified ovarian cyst, left side
CPT/HCPCS: 76830

== ENCOUNTER 2023-05-07 20:09 | Emergency (ER) | payer OTHER ==
[2023-05-07 20:13] VITALS: RESP 18
[2023-05-07] MEDS ORDERED: SODIUM CHLORIDE 0.9% 1,000 ML IV STA (20:21)
[2023-05-07] MEDS ORDERED: KETOROLAC 15 MG/ML 1 ML VIAL IVP STA (20:23)
[2023-05-07] MEDS ORDERED: ONDANSETRON 4 MG/2 ML VIAL IVP STA (20:23)
[2023-05-07 20:52] LABS: Basophils # (A) 0.1 k/uL (0-0.2); Basophils % (A) 1 %; Eosinophils # (A) 0.4 k/uL (0-0.7); Eosinophils % (A) 4 %; HCT 38.5 % (34.0-46.0); Lymphocytes # (A) 3.8 k/uL (1.0-4.8); Lymphocytes % (A) 37 %; MCH 27.2 pg (25.0-35.0); MCHC 33.8 g/dL (31.0-37.0); MCV 80.3 fL (80.0-100.0); Mean Platelet Volume 7.1; Monocytes # (A) 0.4 k/uL (0-1.0); Monocytes % (A) 4 %; Neutrophils # (A) 5.5 k/uL (1.3-7.7); Neutrophils % (A) 53 %; Platelet Count 289 k/uL (150-450); RDW 14.3 % (11.5-15.5); WBC 10.4 k/uL (3.8-10.6)
[2023-05-07 20:57] LABS: Appearance,Urine Clear (Clear); Bilirubin,Urine Negative (Negative); Blood,Urine Negative (Negative); Color,Urine Light Yellow; Glucose,Urine (UA) Negative (Negative); Ketones,Urine Negative (Negative); Leukocyte Esterase,Urine Negative (Negative); Nitrite,Urine Negative (Negative); PH, Urine 5.5 (5.0-8.0); Protein,Urine Negative (Negative); Urobilinogen,Urine <2.0 mg/dL (<2.0)
--- NOTE | 2023-05-07 21:43 | CT ---
EXAMINATION TYPE: CT abdomen pelvis w con CT DLP: 1591.7 mGycm, Automated exposure control for dose reduction was used. DATE OF EXAM: 05/07/2023 9:21 PM COMPARISON: 09/05/2022 CLINICAL INDICATION:Female, 42 years old with history of right abd pain; RT SIDED ABDOMINAL PAIN TECHNIQUE: Axial CT of the abdomen and pelvis. Sagittal and coronal reformats were created on a [employer] workstation. Contrast used:100 mL of Isovue 300 with IV Contrast, (none if empty) Oral contrast used: without Oral Contrast (none if empty) FINDINGS: LOWER CHEST: Unremarkable ABDOMEN LIVER: Unremarkable GALLBLADDER AND BILE DUCTS: Unremarkable. PANCREAS: Unremarkable. SPLEEN: Unremarkable. ADRENAL GLANDS: Unremarkable. KIDNEYS AND URETERS: No evidence of hydronephrosis or renal calculus. The ureters are unremarkable. PELVIS BLADDER: Unremarkable REPRODUCTIVE: There is a cystic lesion in the right adnexa measuring 7.8 x 5.8 x 6.0 cm with thin sep tations versus tubular morphology this is increased in size from prior on 09/05/2022. ABDOMEN & PELVIS STOMACH AND BOWEL: No evidence of bowel obstruction. The appendix is normal. Scattered colonic divert icula. PERITONEUM/RETROPERITONEUM: No evidence of pneumoperitoneum or free fluid. VASCULATURE: No evidence of aortic aneurysm. MUSCULOSKELETAL: No acute osseous abnormalities LYMPH NODES: No gross evidence for lymphadenopathy. SOFT TISSUE/ABDOMINAL WALL: Fat-containing umbilical hernia. IMPRESSION: Cystic structure in the right adnexa with septations which could represent a cystic ovarian neoplasm versus hydrosalpinx given its somewhat tubular appearance. Consider complete evaluation with MRI as c linically warranted. If this is ovarian in etiology its size predisposes this patient to ovarian tors ion. Pelvic ultrasound with Doppler waveforms is recommended.
[2023-05-07 22:50] LABS: ALT 26 U/L (4-34); AST 32 U/L (14-36); African American GFR (CKD) >90 (>60 ml/min/1.73 sqM); Albumin 4.1 g/dL (3.5-5.0); Alkaline Phosphatase 83 U/L (38-126); Anion Gap 10 mmol/L; Blood Urea Nitrogen 17 mg/dL (7-17); Calcium 9.2 mg/dL (8.4-10.2); Carbon Dioxide 23 mmol/L (22-30); Chloride 101 mmol/L (98-107); Glucose 134 mg/dL (74-99); Lipase 164 U/L (23-300); Non-African American GFR(CKD) >90 (>60 ml/min/1.73 sqM); Potassium 3.6 mmol/L (3.5-5.1); Sodium 134 mmol/L (137-145); Total Bilirubin 0.4 mg/dL (0.2-1.3); Total Protein 7.2 g/dL (6.3-8.2)
--- NOTE | 2023-05-07 23:14 | US ---
EXAMINATION TYPE: US pelvic complete DATE OF EXAM: 05/07/2023 COMPARISON: CT same day CLINICAL INDICATION: Female, 42 years old with history of ovarian cyst on CT; RLQ pain. Hx right ova jenna cyst. TECHNIQUE: Transabdominal (TA). Transabdominal sonographic images of the pelvis were acquired. Date of LMP: 04/13/2023, EXAM MEASUREMENTS: Uterus: 8.1 x 4.3 x 3.8 cm Endometrial Stripe: 0.7 cm Right Ovary: 6.9 x 6.7 x 4.8 cm Left Ovary: 2.8 x 1.9 x 1.6 cm 1. Uterus: Anteverted wnl 2. Endometrium: wnl 3. Right Ovary: Multiple cysts seen with largest containing internal echoes = 5.5 x 4.7 x 5.7 cm 4. Left Ovary: wnl Spectral, color and waveform doppler imaging shows good arterial and venous flow within the right o vary; there is no evidence for ovarian torsion. 5. Bilateral Adnexa: wnl 6. Posterior cul-de-sac: trace/small amount of free fluid IMPRESSION: Persistent right adnexal cystic structure with appropriate ovarian arterial and venous spectral wavef orms. Findings remain concerning for cystic ovarian neoplasm versus hydrosalpinx versus pyosalpinx in the setting of pelvic inflammatory disease.
[2023-05-07] MEDS ORDERED: ACET/COD 300 MG/30 MG STARTER PACK 6 TAB BTL PO STA (23:35)
--- NOTE | 2023-05-07 23:37 | ED ---
Abdominal Pain HPI - General Chief Complaint: Abdominal Pain Stated Complaint: Abd pain Time Seen by Provider: 05/07/23 20:20 Source: patient Mode of arrival: ambulatory Limitations: no limitations - History of Present Illness Initial Comments: Patient is a 42-year-old female who presents the emergency department for abdominal pain. It started on Saturday in the right lower abdomen. Patient thought it was an ovarian cyst as she has history. However over the past couple days pain is now radiating to her right upper abdomen with radiation to the back. States he does not feel like an ovarian cyst. She feels nauseous no vomiting. No fever or chills. No urinary symptoms, vaginal discharge. No concerns for sexually transmitted infections. No constipation, diarrhea, blood in stool. - Related Data Home Medications Medication Instructions Recorded Confirmed Levonorgestrel/Ethin.estradiol 1 tab PO DAILY 02/11/19 02/12/19 [Levora-28 Tablet] Aspirin 81 mg PO ONCE PRN 02/12/19 02/12/19 Previous Rx's Medication Instructions Recorded Metoprolol Succinate (ER) [Toprol 25 mg PO DAILY #90 tab.er.24h 02/13/19 XL] Allergies Allergy/AdvReac Type Severity Reaction Status Date / Time No Known Allergies Allergy Verified 07/03/21 09:53 Review of Systems ROS Statement: Those systems with pertinent positive or pertinent negative responses have been documented in the HPI. ROS Other: All systems not noted in ROS Statement are negative. Past Medical History Past Medical History: No Reported History History of Any Multi-Drug Resistant Organisms: None Reported Past Surgical History: No Surgical Hx Reported Past Anesthesia/Blood Transfusion Reactions: No Reported Reaction Past Psychological History: Anxiety, Depression Smoking Status: Never smoker Past Alcohol Use History: Occasional Past Drug Use History: None Reported - Past Family History Father Family Medical History: Hypertension Sister(s) Additional Family Medical History / Comment(s): borderline DM General Exam Limitations: no limitations General appearance: alert Respiratory exam: Present: normal lung sounds bilaterally. Absent: respiratory distress, wheezes, rales, rhonchi, stridor Cardiovascular Exam: Present: regular rate, normal rhythm, normal heart sounds. Absent: systolic murmur, diastolic murmur, rubs, gallop, clicks GI/Abdominal exam: Present: soft, tenderness (RLQ, RUQ), normal bowel sounds. Absent: distended, guarding, rebound, rigid Speculum exam: Present: normal speculum exam. Absent: vaginal discharge, cervi adriana discharge, vaginal bleeding, foreign body By manual exam: Present: normal by manual exam. Absent: cervical motion tenderness Neurological exam: Present: alert Skin exam: Present: warm, dry, intact, normal color. Absent: rash Course Vital Signs 05/07/23 05/07/23 05/07/23 20:11 20:13 23:00 Temperature 98.5 F 97.8 F Pulse Rate 96 78 66 Respiratory 18 18 18 Rate Blood Pressure 145/88 127/82 117/65 O2 Sat by Pulse 97 98 97 Oximetry Medical Decision Making - Medical Decision Making Was pt. sent in by a medical professional or institution (, PA, MUSIC GRAPHER, urgent care, hospital, or [facility]...) When possible be specific @ -No Did you speak to anyone other than the patient for history (EMS, parent, family, police, friend...)? What history was obtained from this source @ -No Did you review nursing and triage notes (agree or disagree)? Why? @ -I reviewed and agree with nursing and triage notes Were old charts reviewed (outside hosp., previous admission, EMS record, old EKG, old radiological studies, urgent care reports/EKG's, [facility] records)? Report findings @ -No old charts were reviewed Differential Diagnosis (chest pain, altered mental status, abdominal pain women, abdominal pain men, vaginal bleeding, weakness, fever, dyspnea, syncope, headache, dizziness, GI bleed, back pain, seizure, CVA, palpatations, mental health)? @ -Differential Abdominal Pain Women: Appendicitis, Cholecystitis, diverticulosis, ischemic bowel, pancreatitis, hepatitis, UTI, gastroenteritis, AAA, incarcerated hernia, bowel obstruction, constipation, inflammatory bowel, hepatitis, peptic ulcer disease, splenic infa rction, perforated viscus, vulvitis, ovarian torsion, PID, kidney stone, placenta abruption, this is not meant to be an all-inclusive list EKG interpreted by me (3pts min.). @ -As above X-rays interpreted by me (1pt min.). @ -None done CT interpreted by me (1pt min.). @ Cystic structure in the right adnexa which could represent ovarian neoplasm versus hydrosalpinx U/S interpreted by me (1pt. min.). @ -Persistent right adnexal cystic structure without torsion What testing was considered but not performed or refused? (CT, X-rays, U/S, labs)? Why? @ -None What meds were considered but not given or refused? Why? @ -None Did you discuss the management of the patient with other professionals (professionals i.e. , JAMIA, MUSIC GRAPHER, lab, RT, psych nurse, manager social work, clinical material handler, teacher, ordnance officer, manager heart failure)? Give summary @ -No Was smoking cessation discussed for >3mins.? @ -No Was critical care preformed (if so, how long)? @ -No Were there social determinants of health that impacted care today? How? (Homelessness, low income, unemployed, alcoholism, drug addiction, transportation, low edu. Level, literacy, decrease access to med. care, halfway, rehab)? @ -No Was there de-escalation of care discussed even if they declined (Discuss DNR or withdrawal of care, Hospice)? DNR status @ -No What co-morbidities impacted this encounter? (DM, HTN, Smoking, COPD, CAD, Cancer, CVA, ARF, Chemo, Hep., AIDS, mental health diagnosis, sleep apnea, morbid obesity)? @ -None Was patient admitted / discharged? Hospital course, mention meds given and route, prescriptions, significant lab abnormalities, going to OR and other pertinent info. @ Patient presenting for right abdominal pain. She is well-appearing. There is mild tenderness in the right lower quadrant, right upper quadrant without rigidity or guarding. Symptoms are nonspecific and not consistent with ovarian cyst according to patient therefore CT was obtained and interpreted by myself showing cystic structure in the right adnexa with septations which could represent cystic ovarian neoplasm versus hydrosalpinx. Ultrasound was then obtained which showed persistent right adnexal cystic structure without torsion. Findings remain concerning for cystic ovarian neoplasm versus hydrosalpinx versus pyosalpinx salpinx in the setting of pelvic inflammatory disease. Clinical presentation is not consistent with pelvic inflammatory disease as jamia reno is afebrile, nontoxic appearing, no cervical motion tenderness. Results discussed with patient. Patient in stable medical condition for discharge. She is highly encouraged follow-up with her health education director further evaluation and management. Patient verbalizes understanding Undiagnosed new problem with uncertain prognosis? @ -No Drug Therapy requiring intensive monitoring for toxicity (Heparin, Nitro, Insulin, Cardizem)? @ -No Were any procedures done? @ -No Diagnosis/symptom? @ -right abdominal pain Acute, or Chronic, or Acute on Chronic? @ -Acute Uncomplicated (without systemic symptoms) or Complicated (systemic symptoms)? @ -Uncomplicated Side effects of treatment? @ -No Exacerbation, Progression, or Severe Exacerbation? @ -No Poses a threat to life or bodily function? How? (Chest pain, [place], [place], pneumonia, PE, COPD, DKA, ARF, appy, cholecystitis, CVA, Diverticulitis, Homicidal, Suicidal, threat to staff... and all critical care pts) @ -No Dr. Joshua is my attending - Lab Data Result diagrams: 05/07/23 20:21 05/07/23 20:21 Lab Results 05/07/23 05/07/23 05/07/23 Range/Units 20:21 20:21 20:21 WBC 10.4 (3.8-10.6) k/uL RBC 4.80 (3.80-5.40) m/uL Hgb 13.0 (11.4-16.0) gm/dL Hct 38.5 (34.0-46.0) % MCV 80.3 (80.0-100.0) fL MCH 27.2 (25.0-35.0) pg MCHC 33.8 (31.0-37.0) g/dL RDW 14.3 (11.5-15.5) % Plt Count 289 (150-450) k/uL MPV 7.1 Neutrophils % 53 % Lymphocytes % 37 % Monocytes % 4 % Eosinophils % 4 % Basophils % 1 % Neutrophils # 5.5 (1.3-7.7) k/uL Lymphocytes # 3.8 (1.0-4.8) k/uL Monocytes # 0.4 (0-1.0) k/uL Eosinophils # 0.4 (0-0.7) k/uL Basophils # 0.1 (0-0.2) k/uL Sodium (137-145) mmol/L Potassium (3.5-5.1) mmol/L Chloride (98-107) mmol/L Carbon Dioxide (22-30) mmol/L Anion Gap mmol/L BUN (7-17) mg/dL Creatinine (0.52-1.04) mg/dL Est GFR (CKD-EPI)AfAm (>60 ml/min/1.73 sqM) Est GFR (CKD-EPI)NonAf (>60 ml/min/1.73 sqM) Glucose (74-99) mg/dL Plasma Lactic Acid Joselo (0.7-2.0) mmol/L Calcium (8.4-10.2) mg/dL Total Bilirubin (0.2-1.3) mg/dL AST (14-36) U/L ALT (4-34) U/L Alkaline Phosphatase (38-126) U/L Total Protein (6.3-8.2) g/dL Albumin (3.5-5.0) g/dL Lipase (23-300) U/L Urine Color Light Yellow Urine Appearance Clear (Clear) Urine pH 5.5 (5.0-8.0) Ur Specific [place] 1.010 (1.001-1.035) Urine Protein Negative (Negative) Urine Glucose (UA) Negative (Negative) Urine Ketones Negative (Negative) Urine Blood Negative (Negative) Urine Nitrite Negative (Negative) Urine Bilirubin Negative (Negative) Urine Urobilinogen <2.0 (<2.0) mg/dL Ur Leukocyte Esterase Negative (Negative) Urine HCG, Qual Not Detected (Not Detectd) 05/07/23 05/07/23 Range/Units 20:21 20:21 WBC (3.8-10.6) k/uL RBC (3.80-5.40) m/uL Hgb (11.4-16.0) gm/dL Hct (34.0-46.0) % MCV (80.0-100.0) fL MCH (25.0-35.0) pg MCHC (31.0-37.0) g/dL RDW (11.5-15.5) % Plt Count (150-450) k/uL MPV Neutrophils % % Lymphocytes % % Monocytes % % Eosinophils % % Basophils % % Neutrophils # (1.3-7.7) k/uL Lymphocytes # (1.0-4.8) k/uL Monocytes # (0-1.0) k/uL Eosinophils # (0-0.7) k/uL Basophils # (0-0.2) k/uL Sodium 134 L (137-145) mmol/L Potassium 3.6 (3.5-5.1) mmol/L Chloride 101 (98-107) mmol/L Carbon Dioxide 23 (22-30) mmol/L Anion Gap 10 mmol/L BUN 17 (7-17) mg/dL Creatinine 0.66 (0.52-1.04) mg/dL Est GFR (CKD-EPI)AfAm >90 (>60 ml/min/1.73 sqM) Est GFR (CKD-EPI)NonAf >90 (>60 ml/min/1.73 sqM) Glucose 134 H (74-99) mg/dL Plasma Lactic Acid Joselo 2.0 (0.7-2.0) mmol/L Calcium 9.2 (8.4-10.2) mg/dL Total Bilirubin 0.4 (0.2-1.3) mg/dL AST 32 (14-36) U/L ALT 26 (4-34) U/L Alkaline Phosphatase 83 (38-126) U/L Total Protein 7.2 (6.3-8.2) g/dL Albumin 4.1 (3.5-5.0) g/dL Lipase 164 (23-300) U/L Urine Color Urine Appearance (Clear) Urine pH (5.0-8.0) Ur Specific [place] (1.001-1.035) Urine Protein (Negative) Urine Glucose (UA) (Negative) Urine Ketones (Negative) Urine Blood (Negative) Urine Nitrite (Negative) Urine Bilirubin (Negative) Urine Urobilinogen (<2.0) mg/dL Ur Leukocyte Esterase (Negative) Urine HCG, Qual (Not Detectd) Disposition Clinical Impression: Right sided abdominal pain Disposition: HOME SELF-CARE Condition: Good Instructions (If sedation given, give patient instructions): Ovarian Cyst (ED) Additional Instructions: Alternate Tylenol and Motrin every 3-4 hours for pain. Save Tylenol 3 for severe pain. Do not take Tylenol 3 and Tylenol together. Follow-up with gynecology in one to 2 days. Return to the emergency department if you experience new, concerning, or worsening symptoms. Is patient prescribed a controlled substance at d/c from ED?: No Referrals: Clement Singh MD [Primary Care Provider] - 1-2 days
[2023-05-07 23:48] VITALS: BP 117/65; PULSE 66; TEMP 97.8
== END 2023-05-07 23:55 | disposition home or self-care (01) ==
LOC: EC 20:09
DX: R10.11 Right upper quadrant pain (principal); R10.31 Right lower quadrant pain; Z86.59 Personal history of other mental and behavioral disorders
CPT/HCPCS: 36415; 80053; 83605; 83690; 85025; 81003; 81025; 93976; 76856; 74177; 99284; 96374; 96375; 96361; J2405; J1885; Q9967

== ENCOUNTER → 2023-08-26 | Outpatient (CLI) | payer OTHER ==
--- NOTE | 2023-08-27 12:25 | MM ---
Reason for Exam: Screening (asymptomatic). Last screening mammogram was performed 12 month(s) ago. Patient History: Menarche at age 14. First Full-Term at age 18. Patient used Hormonal Contraceptives for 14 years. Last menstrual period: 08/19/2023 Risk Values: Shu 5 year model risk: 0.5%. NCI Lifetime model risk: 6.5%. Prior Study Comparison: 07/03/2021 Left Diagnostic Mammogram, [facility]. 02/05/2022 Left Diagnostic Mammogram, [facility]. 08/20/2022 Bilateral MG screening mammo w CAD, [facility]. Tissue Density: The breast tissue is heterogeneously dense. This may lower the sensitivity of mammography. Findings: Analyzed By CAD. There is no suspicious group of microcalcifications or new suspicious mass in either breast. Overall Assessment: Negative, BI-RAD 1 Management: Screening Mammogram of both breasts in 1 year. . Patient should continue monthly self-breast exams. A clinical breast exam by your physician is recommended on an annual basis. This exam should not preclude additional follow-up of suspicious palpable abnormalities. Note on Shu scores and lifetime risk: 1. A Shu score greater than 3% is considered moderate risk. If this is the case, consider specialist referral to assess eligibility for a risk reducing agent. 2. If overall lifetime risk for the development of breast cancer is 20% or higher, the patient may qualify for future screening with alternating mammogram and breast MRI. Electronically signed and approved by: Pablito Whitley M.D. Radiologis
== END | disposition home or self-care (01) ==
LOC: RADMAMWWP 10:07
PROVIDERS: ATTEND Obstetrics & Gynecology
DX: Z12.31 Encounter for screening mammogram for malignant neoplasm of breast (principal)
CPT/HCPCS: 77063; 77067

== ENCOUNTER → 2024-12-21 | Outpatient (CLI) | payer OTHER ==
--- NOTE | 2024-12-21 09:43 | CT ---
EXAMINATION TYPE: CT abdomen pelvis wo con DATE OF EXAM: 12/21/2024 9:31 AM COMPARISON: CT abdomen pelvis most recent from 05/07/2023 CT and ultrasound CLINICAL INDICATION: Female, 44 years old with history of N83.291 OTHER OVARIAN CYST, RIGHT SIDE; OVA VIET CYST, RIGHT SIDE TECHNIQUE: Axial CT abdomen pelvis wo con;Sagittal and coronal reformats were created on a separate workstation. Contrast used: mL of , (none if empty) Oral contrast used: without Oral Contrast (none if empty) CT DLP: 935.7 mGycm, Automated exposure control for dose reduction was used. FINDINGS: LOWER CHEST: Unremarkable ABDOMEN LIVER: Diffusely hypoattenuating parenchyma. GALLBLADDER AND BILE DUCTS: Unremarkable. PANCREAS: Unremarkable. SPLEEN: Unremarkable. ADRENAL GLANDS: Unremarkable. KIDNEYS AND URETERS: No evidence of hydronephrosis or renal calculus. The ureters are unremarkable. PELVIS BLADDER: No evidence for wall thickening or mass given limitations of exam. REPRODUCTIVE: Cystic structure in the right adnexa measuring 5.3 x 4.3 cm previously 7.8 x 5.8 possib ly representing an dilated fluid-filled fallopian tube versus compensated cyst. Left dominant follicl e measuring 27 mm in left ovarian possible cyst . The endometrium is dilated possibly fluid-filled. ABDOMEN & PELVIS STOMACH AND BOWEL: No evidence of bowel obstruction. The appendix is normal. Scattered colonic divert icula. PERITONEUM/RETROPERITONEUM: No evidence of pneumoperitoneum or free fluid. VASCULATURE: No evidence of aortic aneurysm. MUSCULOSKELETAL: No acute osseous abnormalities LYMPH NODES: No gross evidence for lymphadenopathy. SOFT TISSUE/ABDOMINAL WALL: Fat-containing umbilical hernia. IMPRESSION: 1. No acute abdominal process. 2. Decrease in size of right adnexal cystic structure possibly representing dilated fallopian tube v ersus complicated cyst.. Consider MRI pelvis w con for complete evaluation. 3. Prominent endometrium hospital containing fluid consider attention on MRI. 4. Colonic diverticulosis. 5. Hepatic steatosis. 6. Normal appendix. 7. No obstructive uropathy or renal calculus. [facility], , 12/21/2024 9:41 AM
--- NOTE | 2024-12-21 10:21 | MM ---
Reason for Exam: Screening (asymptomatic). Last mammogram was performed 1 year(s) and 4 month(s) ago. Patient History: Menarche at age 14. First Full-Term at age 18. Patient used Hormonal Contraceptives for 14 years. Risk Values: Shu 5 year model risk: 0.5%. NCI Lifetime model risk: 6.5%. Prior Study Comparison: 02/05/2022 Left Diagnostic Mammogram, [facility]. 08/20/2022 Bilateral MG screening mammo w CAD, [facility]. 08/26/2023 Bilateral MG 3D screening mammo w/cad, [facility]. Tissue Density: The breasts are heterogeneously dense, which may obscure small masses. Findings: Analyzed By CAD. There is no suspicious group of microcalcifications or new suspicious mass in either breast. Asymmetric density upper margin of the left breast is stable dating back to multiple prior exams. Benign-appearing calcifications. Overall Assessment: Benign, BI-RAD 2 Management: Screening Mammogram of both breasts in 1 year. . Patient should continue monthly self-breast exams. A clinical breast exam by your physician is recommended on an annual basis. This exam should not preclude additional follow-up of suspicious palpable abnormalities. Note on Shu scores and lifetime risk: 1. A Shu score greater than 3% is considered moderate risk. If this is the case, consider specialist referral to assess eligibility for a risk reducing agent. 2. If overall lifetime risk for the development of breast cancer is 20% or higher, the patient may qualify for future screening with alternating mammogram and breast MRI. [facility], , 12/21/2024 10:18 AM. Electronically signed and approved by: Clement Danielson M.D. Radiologis
== END | disposition home or self-care (01) ==
LOC: RADCTMAIN 09:08
PROVIDERS: ATTEND Family Medicine
DX: Z12.31 Encounter for screening mammogram for malignant neoplasm of breast (principal); R92.333 Mammographic heterogeneous density, bilateral breasts; N83.291 Other ovarian cyst, right side; K57.30 Diverticulosis of large intestine without perforation or abscess without bleeding; K76.0 Fatty (change of) liver, not elsewhere classified; E27.9 Disorder of adrenal gland, unspecified; Z92.0 Personal history of contraception
CPT/HCPCS: 74176; 77063; 77067